=== PATIENT | female | born 1940 ===

== ENCOUNTER 2017-10-12 01:21 | Inpatient (IN) | payer MEDICARE, BC ==
[~2017-10-12] VITALS: Ht 152.4 cm; Wt 51.3 kg
[2017-10-12] VITALS (18 sets, daily range): BP systolic 100–173; BP diastolic 62–99
[~2017-10-12 01:21] MED LIST: ALEN70TA43 PO; AMLO-106 PO; ASPI-1471 PO; ATOR10TA24 PO; CARV12.577 PO; DULO60CA56 PO; DULO60CA7 PO; LEVO100T95 PO; LOR5/325 PO
[2017-10-12] MEDS ORDERED: ACETAMINOPHEN(*)1000 MG/100 ML 0 ML IVPB ONE (06:25)
[2017-10-12] MEDS ORDERED: PROPOFOL EMUL(*) 10MG/ML 20 ML 20 ML ONE (07:46)
[2017-10-12] MEDS ORDERED: LIDOCAINE MPF 1% 5 ML VIAL ONE (07:46)
[2017-10-12] MEDS ORDERED: SUGAMMADEX SOD 200 MG/2 ML SDV ONE (07:46)
[2017-10-12] MEDS ORDERED: DEXAMETHASONE SOD PHOS 10MG/ML ONE (07:46)
[2017-10-12] MEDS ORDERED: ONDANSETRON 4 MG/2 ML VIAL ONE (07:46)
[2017-10-12] MEDS ORDERED: ROCURONIUM BROM 10 MG/ML 10 ML ONE (07:46)
[2017-10-12] MEDS ORDERED: fentaNYL CITR 100 MCG/2 ML AMP ONE ×3 (07:50→12:01)
[2017-10-12] MEDS ORDERED: FAMOTIDINE 20 MG TAB PO ONE (09:00)
[2017-10-12] MEDS ORDERED: PREGABALIN 75 MG CAPSULE PO ONE (09:00)
[2017-10-12] MEDS ORDERED: ACETAMINOPHEN 500 MG TAB PO ONE (09:00)
[2017-10-12] MEDS ORDERED: MIDAZOLAM 2 MG/2 ML VIAL IVP PRN (09:00)
[2017-10-12] MEDS ORDERED: ceFAZolin(*) 2GM/D5W 50ML 50 ML IVPB ONE (09:00)
[2017-10-12] MEDS ORDERED: LIDOCAINE/SOD BICARB 8.4% SYR ID ONE (09:00)
[2017-10-12] MEDS ORDERED: NORMOSOL R SOLN(*) 1000 ML BAG 1,000 ML IV PRN (09:00)
[2017-10-12] MEDS ORDERED: ROPIVACAINE 0.2% 20 ML VIAL ONE (11:07)
[2017-10-12] MEDS ORDERED: HYDROmorphone HCL 2 MG/ML SDV ONE (12:26)
[2017-10-12] MEDS ORDERED: oxyCODONE HCL 5 MG CAP PO PRN (12:55)
[2017-10-12] MEDS ORDERED: MAGNESIUM HYDROXIDE* 30ML UDCP PO PRN (12:55)
[2017-10-12] MEDS ORDERED: ACETAMINOPHEN(*)1000 MG/100 ML 100 ML IVPB PRN (12:55)
[2017-10-12] MEDS ORDERED: diphenhydrAMINE 25 MG CAP PO PRN (12:55)
[2017-10-12] MEDS ORDERED: LR(*) 1000 ML BAG 1,000 ML IV PRN (12:55)
[2017-10-12] MEDS ORDERED: BISACODYL 10 MG SUPP PR PRN (12:55)
[2017-10-12] MEDS ORDERED: HYDROmorphone HCL 2 MG/ML SDV IVP PRN (12:55)
[2017-10-12] MEDS ORDERED: BENZOCAINE/MENTHOL 1 EACH LOZG PO PRN (12:55)
[2017-10-12] MEDS ORDERED: ACETAMINOPHEN 500 MG TAB PO PRN (12:55)
[2017-10-12] MEDS ORDERED: DIAZEPAM 5 MG TAB PO PRN (12:55)
[2017-10-12] MEDS ORDERED: FLUSH 10 ML SYR IVP PRN (12:55)
[2017-10-12] MEDS ORDERED: ONDANSETRON 4 MG/2 ML VIAL IVP PRN (12:55)
--- NOTE | 2017-10-12 14:34 | OPERATIVE REPORT 1 ---
EVENT DATE: October 12, 2017 SURGEON: Robin Nielsen M.D. ANESTHESIOLOGIST: Nick Lord M.D. ANESTHESIA: General endotracheal. THERAPEUTIC RECREATION LEADER: Nick Casillas PA-C PREOPERATIVE DIAGNOSIS Lumbar third vertebra-lumbar fourth vertebra (L3-L4) spinal stenosis. POSTOPERATIVE DIAGNOSIS Lumbar third vertebra-lumbar fourth vertebra (L3-L4) spinal stenosis. PROCEDURE PERFORMED Lumbar third vertebra-lumbar fourth vertebra (L3-L4) laminectomy. IV FLUIDS 1300 mL. ESTIMATED BLOOD LOSS 80 mL. IMPLANTS None. SPECIMENS None. DRAINS None. COMPLICATIONS None. DISPOSITION Post-anesthesia care unit. INDICATIONS FOR SURGERY Ms. Segura is a 76-year-old female who presented with a chief complaint of radiating left leg pain, numbness and tingling from the buttock wrapping around down to the anterior thigh and accompanied by left quadriceps weakness. She had undergone L4-L5 and L5-S1 laminectomies in the past, which gave her good relief of symptoms at that time but then symptoms returned in this new distribution. Her physical examination was significant for diminished deep tendon reflexes in the left patella and significant weakness in the left quadriceps compared to the right quadriceps. Sensation was intact and strength was otherwise normal. Her diagnostic studies showed multilevel degenerative disk disease with severe spinal stenosis at L3-L4. Secondary to ongoing symptoms and failure to improve with nonsurgical treatment , Ms. Segura was offered and elected to undergo L3-L4 laminectomy. Prior to surgery, I explained in detail to the patient the possible risk of surgery. These risks included bleeding, infection, damage to surrounding structures, nerve root injury, spinal fluid leak, infection, meningitis, , blindness, sexual dysfunction, autonomic nervous system dysfunction and other unforeseen medical and surgical complications. An understanding that spinal surgery is more predictive at improving extremity discomfort than axial spine pain was stressed. DESCRIPTION OF PROCEDURE On the day of surgery, the patient was met in the preoperative hold area and all questions were answered. The operative site was identified and marked by myself. The patient was brought in good condition to the operating room and after succumbing to anesthesia was positioned in the prone position on a Chaim table. All bony protuberances were well padded in the standard fashion. Care was taken to maintain appropriate perfusion pressures during anesthesia. Preoperative antibiotics were administered according to the appropriate time and schedule. At the conclusion of the procedure, sponge and needle counts were correct x2. A final time-out was undertaken by members of the operating team to confirm correct patient, corrects levels and correct surgery. An 18-gauge spinal needle was placed on the spinous process of L3 and a lateral radiograph was obtained to confirm correct spinal levels. The patient was then prepped and draped in the standard sterile orthopedic fashion and a vertical incision was made over the intended surgical levels. Sharp dissection was carried out down to the posterior elements and soft tissues were elevated off the posterior elements in a standard fashion. The Leksell rongeur was used to remove the spinous process of L3. The midline of the L3 lamina was thinned using a combination of the Leksell rongeur and a high-speed bur. An angled curette was used to undermine the superior insertion of the ligamentum flavum from the inferior aspect of the L3 lamina. Once the canal was entered, a Amador elevator was used to separate any dural adhesions from surrounding bone and soft tissue prior to use of the Kerrison punch. A #4 Kerrison rongeur was used to perform a midline decompression. Bilateral lateral recess decompressions were then performed using #4 and #3 Kerrisons and removing a significant amount of overgrown facet as well as thickened ligamentum flavum. Once the decompression was complete, a Amador elevator was used to confirm that the lateral recesses were without significant stenosis and that the foramina were open with plenty of room for the exiting nerve roots. The wound was then irrigated with copious sterile saline solution and meticulous hemostasis was obtained. The incision was then closed with interrupted sutures in the deep fascia and inverted interrupted sutures in the subcutaneous tissue and running subcuticular skin stitch. Sponge and needle counts were correct x2. POSTOPERATIVE CARE PLAN Ms. Segura will remain in the hospital until she meets discharge criteria. She will then be discharged home with instructions to follow up with me in two weeks for wound check and examination. AUDREY
--- NOTE | 2017-10-12 14:41 | RADIOLOGY IMAGING REPORT ---
FACILITY: [facility] - [place] PATIENT NAME: Bhargavi Segura : 1940 MR: [id number] V: [id number] EXAM DATE: ORDERING PHYSICIAN: SHANELL LEYVA TECHNOLOGIST: Location: [facility] [place] Patient: Bhargavi Segura : 1940 Visit/Account:[id number] Date of Sevice: 10/12/2017 Exam type: LUMBAR SPINE 1 VIEW History: L3-4 LAMINECTOMY Comparison: None. Findings: A single cross table lateral intraoperative view of the lumbar spine demonstrates a metallic probe pr ojecting over the posterior spinous process of L3, assuming there are five lumbar type vertebra. Inc idental noted is what appears to be a severe compression fracture of T12 and a moderate compression f racture of L1 IMPRESSION: 1. As above Report Dictated By: Erica Ashford MD at 10/12/2017 2:36 PM Report E-Signed By: Erica Ashford MD at 10/12/2017 2:37 PM WSN:[id number]
--- NOTE | 2017-10-12 15:20 | Hospitalist Consultation ---
History of Present Illness Requesting Physician Dr. Nielsen Reason for Consult Hypertension, Hypothyroidism, Osteoporosis Chief Complaint s/p laminectomy History of Present Illness She was admitted s/p laminectomy. It is reported the surgery went well and without complication. History Problems: (1) Hypertension Status: Chronic (2) Hypothyroidism Status: Chronic (3) Osteoporosis Status: Chronic (4) Ischemic heart disease Status: Chronic Home Meds Reported Medications Duloxetine Hcl (CYMBALTA) 60 Mg Capsule.dr, 120 MG PO QDAY, #5 CAP 10/11/17 Aspirin (ASPIR 81) 81 Mg Tablet.dr, 81 MG PO QDAY, TAB 10/11/17 Hydrocodone Bit/Acetaminophen (HYDROCODON-ACETAMINOPHEN 5-325) 1 Each Tablet, 2 EACH PO QID Y for PAIN, TAB 10/10/17 Atorvastatin Calcium (LIPITOR) 10 Mg Tablet, 1 TAB PO QDAY, TAB 10/10/17 Amlodipine Besylate/Benazepril (LOTREL 10-40 MG CAPSULE) 1 Each Capsule, 1 EACH PO QDAY, CAPSULE 10/10/17 Levothyroxine Sodium (SYNTHROID) 100 Mcg Tablet, 100 MCG PO QDAY 10/10/17 Carvedilol (COREG) 12.5 Mg Tablet, 12.5 MG PO BID, #10 TAB 10/10/17 Alendronate Sodium (FOSAMAX) 70 Mg Tablet, 70 MG PO QWK, TAB 10/10/17 Discontinued Reported Medications Duloxetine HCl (Duloxetine HCl) 60 Mg Capsule.dr, 2 CAP PO QDAY 10/10/17 Allergies: Coded Allergies: No Known Drug Allergies (Unverified , 10/12/17) Patient History: Diabetes mellitus FATHER FH: CT (myocardial infarction) MOTHER FH: heart disease BROTHER OR SISTER Hx Smoking: Yes (/ PPD FROM 1959 UNTIL 12/2016 (58 YRS)) Smoking Status: Former Smoker When Quit Tobacco?: 12/2016 Caffeine Intake: Coffee Caffeine/Cups Per Day: NO MORE THAN ONE CUP/DAY Hx Alcohol Use: Yes Alcohol Used: Liquor Hx Substance Use Disorder: No Social Drug Use: Never History of IV Drug Use: No Review of Systems All Systems Reviewed/Normal: Yes, Except as Noted Exam Vital Signs Vital Signs Date Time Temp Pulse Resp B/P (MAP) Pulse Ox O2 Delivery O2 Flow Rate FiO2 10/12/17 14:45 86 100/70 (80) 94 Nasal Cannula 3.0 10/12/17 13:10 12 10/12/17 13:10 98.2 General Appearance: Alert, Awake, No Acute Distress, Afebrile Neuro: No Gross deficits Cardiovascular: Regular Rate and Rhythm Respiratory: No Respiratory Distress, Clear to Auscultation GI: Abd Soft and Non-Tender Psych: Alert & Oriented X3, Appropriate Mood & Affect Assessment and Plan Problems: (1) S/P laminectomy Status: Acute Assessment & Plan: Followed by Dr. Nielsen. (2) Hypertension Status: Chronic Assessment & Plan: She is on chronic treatment with Lotrel (amlodipine and benazepril) and Carvedilol. The amlodipine and carvedilol has been restarted with hold parameters. (3) Ischemic heart disease Status: Chronic Assessment & Plan: She is on chronic treatment with baby aspirin and Atorvastatin. She had an CT in 1993 and has been under medical treatment only. She had negative stress test prior to surgery. (4) Hypothyroidism Status: Chronic Assessment & Plan: She is on chronic treatment with Levothyroxine. (5) Osteoporosis Status: Chronic Assessment & Plan: She is on chronic treatment with Fosamax weekly. Venous Thromboembolism Antithrombotics Is Pt On Any Antithrombotics?: No Exam Sepsis Risk: No Definite Risk NANDA CARUSOP Oct 12, 2017 15:20
[2017-10-12] MEDS: APAP/HYDROCODONE 325/5 TAB PO PRN ×2 (15:31→21:13)
[2017-10-12] MEDS: ceFAZolin(*) 2GM/D5W 50ML 50 ML IVPB SCH (16:32)
[2017-10-12] MEDS: DOCUSATE SODIUM 100 MG CAP PO SCH (20:22)
[2017-10-12] MEDS ORDERED: ATORVASTATIN 10 MG TAB PO SCH (21:00)
[2017-10-13] MEDS: ceFAZolin(*) 2GM/D5W 50ML 50 ML IVPB SCH ×2 (00:29→08:21)
[2017-10-13 02:44] VITALS: BP 152/98
[2017-10-13] MEDS: APAP/HYDROCODONE 325/5 TAB PO PRN ×2 (02:52→08:26)
[2017-10-13] MEDS ORDERED: LEVOTHYROXINE SOD 0.1 MG TAB PO SCH (06:00)
[2017-10-13] MEDS ORDERED: LOR5/325 PO (07:13)
[2017-10-13] MEDS ORDERED: DOCU240C84 PO (07:14)
[2017-10-13] MEDS ORDERED: DIA5 PO (07:14)
[2017-10-13 07:23] VITALS: BP 181/103
[2017-10-13] MEDS: DOCUSATE SODIUM 100 MG CAP PO SCH (08:25)
[2017-10-13] MEDS ORDERED: BENAZEPRIL HCL 20 MG TAB PO SCH (09:00)
[2017-10-13] MEDS ORDERED: CARVEDILOL 6.25 MG TAB PO SCH (09:00)
[2017-10-13] MEDS ORDERED: DULoxetine HCL 30 MG CAPCR PO SCH (09:00)
[2017-10-13] MEDS ORDERED: amLODIPine BESYL(*) 5 MG TAB PO SCH (09:00)
--- NOTE | 2017-10-13 10:26 | Hospitalist Progress Note ---
Subjective Progress Notes Subjective She has no complaints this morning. She had no acute events overnight. Patient Complains of: Cardiovascular: No: Chest Pain Respiratory: No: Shortness of Breath Physical Exam Vital Signs Date Time Temp Pulse Resp B/P (MAP) Pulse Ox O2 Delivery O2 Flow Rate FiO2 10/13/17 07:23 94 Nasal Cannula 1.5 10/13/17 07:23 86 18 181/103 (129) 10/13/17 02:44 98.2 Intake and Output 10/14/17 07:00 # Voids 1 General Appearance: Alert, Awake, No Acute Distress, Afebrile Neuro: No Gross deficits Cardiovascular: Regular Rate and Rhythm Respiratory: No Respiratory Distress, Clear to Auscultation GI: Soft and Non-Tender Psych: Alert & Oriented X3, Appropriate Mood & Affect Assessment and Plan Problems: (1) S/P laminectomy Status: Acute Assessment & Plan: Followed by Dr. Nielsen. (2) Hypertension Status: Chronic Assessment & Plan: She is on chronic treatment with Lotrel (amlodipine and benazepril) and Carvedilol. (3) Ischemic heart disease Status: Chronic Assessment & Plan: She is on chronic treatment with baby aspirin and Atorvastatin. She had an NC in 1993 and has been under medical treatment only. She had negative stress test prior to surgery. (4) Hypothyroidism Status: Chronic Assessment & Plan: She is on chronic treatment with Levothyroxine. (5) Osteoporosis Status: Chronic Assessment & Plan: She is on chronic treatment with Fosamax weekly. Exam Sepsis Risk: No Definite Risk NANDA CARUSO [facility] Oct 13, 2017 10:26
== END 2017-10-13 10:00 | disposition home or self-care (01) | DRG 517 ==
LOC: OR 01:21 → MED 13:10
PROVIDERS: ADMIT Orthopaedic Surgery; ATTEND Orthopaedic Surgery
PROC: 01NB0ZZ Release Lumbar Nerve, Open Approach (ICD-10-PCS; principal; 2017-10-12 10:07)
DX: M48.03 Spinal stenosis, cervicothoracic region (principal); M51.16 Intervertebral disc disorders with radiculopathy, lumbar region; I10 Essential (primary) hypertension; E03.9 Hypothyroidism, unspecified; M81.0 Age-related osteoporosis without current pathological fracture; I25.9 Chronic ischemic heart disease, unspecified; I25.2 Old myocardial infarction; I25.10 Atherosclerotic heart disease of native coronary artery without angina pectoris; E78.00 Pure hypercholesterolemia, unspecified; Z79.82 Long term (current) use of aspirin; Z96.652 Presence of left artificial knee joint; Z87.891 Personal history of nicotine dependence
CPT/HCPCS: 72020; 97161; J0131; J0690; J1100; J1170; J2001; J2405; J2704; J2795; J3010